=== PATIENT | female | born 1960 | race Caucasian/White ===

== ENCOUNTER 2019-03-19 22:02 | Emergency (ER) | payer BC ==
--- NOTE | 2019-03-19 22:23 | ED ---
Lower Extremity - HPI Summary HPI Summary: 58 yo female presents with RIGHT knee pain. She tells me that 2 days ago she returned from a flight from [place] and noticed some right posterior knee pain that is worse with weight bearing and better with rest. Since that time her pain has been persistent and today noticed a bruise to her anterior lower leg. She is concerned for a blood clot. She has a hx of knee arthritis and had a left knee replacement years ago. She does not smoke. Denies personal or family hx of blood clots. Denies SOB, chest pain, numbness, tingling. - History of Current Complaint Chief Complaint: EDExtremityLower Stated Complaint: RT LEG SWOLLEN AND PAIN PER PT Time Seen by Provider: 03/19/19 22:23 Hx Obtained From: Patient Severity Initially: Moderate Severity Currently: Moderate Pain Intensity: 6 Pain Scale Used: 0-10 Numeric - Allergies/Home Medications Allergies/Adverse Reactions: Allergies Allergy/AdvReac Type Severity Reaction Status Date / Time Penicillins Allergy Hives Verified 03/19/19 22:07 Home Medications: Home Medications Aspirin 1 tab PO DAILY 03/19/19 [History Confirmed 03/19/19] Atenolol [Tenormin 100 MG] 100 mg PO DAILY 03/19/19 [History Confirmed 03/19/19] Cholecalciferol TAB* [Vitamin D TAB*] 5,000 unit PO DAILY 03/19/19 [History Confirmed 03/19/19] Lisinopril TAB* [Prinivil TAB*] 10 mg PO DAILY 03/19/19 [History Confirmed 03/19] Multivitamin 1 tab 03/19/19 [History] Rosuvastatin Calcium [Crestor] 1 tab PO DAILY 03/19/19 [History Confirmed ] PMH/Surg Hx/FS Hx/Imm Hx Endocrine/Hematology History: Denies: Hx Diabetes Cardiovascular History: Reports: Hx Hypercholesterolemia, Hx Hypertension Respiratory History: Denies: Hx Asthma, Hx Chronic Obstructive Pulmonary Disease (COPD) History: Denies: Hx Acute Renal Failure Neurological History: Denies: Hx CVA, Hx Headaches, Hx Migraine - Surgical History Surgical History: Yes Surgery Procedure, Year, and Place: Left total knee replacement Infectious Disease History: Denies: Traveled Outside the [place] in Last 30 Days - Family History Known Family History: Positive: None - Social History Lives: With Family Alcohol Use: Occasionally Substance Use Type: Reports: None Smoking Status (MU): Never Smoked Tobacco Review of Systems Constitutional: Negative Cardiovascular: Negative Respiratory: Negative Gastrointestinal: Negative Musculoskeletal: Other - Right knee pain Skin: Negative Neurological: Negative Psychological: Normal All Other Systems Reviewed And Are Negative: No Physical Exam - Summary Physical Exam Summary: GENERAL: NAD. WDWN. No pain distress. SKIN: 4.0cm area of mild ecchymosis on lower anterior right leg. CHEST: No accessory muscle use. Breathing comfortably and in no distress. CV: Pulses intact popliteal, PT, and DP. Cap refill <2seconds MSK: Right KNEE: Mild TTP posterior knee. Pain reproduced with knee flexion. Strength 5/5. No edema or obvious bony deformities. Negative ruby sign. NEURO: Alert. Sensations intact and symmetric B/L LEs PSYCH: Age appropriate behavior. Triage Information Reviewed: Yes Vital Signs On Initial Exam: Initial Vitals Temp Pulse Resp BP Pulse Ox 97.8 F 89 16 143/58 99 03/19/19 22:05 03/19/19 22:05 03/19/19 22:05 03/19/19 22:05 03/19/19 22:05 Vital Signs Reviewed: Yes Procedures - Sedation Patient Received Moderate/Deep Sedation with Procedure: No Diagnostics - Vital Signs Vital Signs Temp Pulse Resp BP Pulse Ox 03/19/19 22:05 97.8 F 89 16 143/58 99 - Laboratory Lab Statement: Any lab studies that have been ordered have been reviewed, and results considered in the medical decision making process. - Radiology Right knee XR Radiology Interpretation Completed By: ED Physician Summary of Radiographic Findings: Moderate arthritis. No acute process - Ultrasound Right leg Ultrasound Interpretation Completed By: Radiologist Summary of Ultrasound Findings: IMPRESSION: No right lower extremity deep vein thrombosis. Lower Extremity Course/Dx - Course Course Of Treatment: US as above. XR wet read negative. Suspect arthritic pain. Advised to rest, ice, elevate, and take tylenol as directed for discomfort. F/u with her Orthopedic doctor back home in [place]. - Diagnoses Provider Diagnoses: Knee pain Discharge ED - Sign-Out/Discharge Documenting (check all that apply): Patient Departure - Discharge Plan Condition: Stable Disposition: HOME Patient Education Materials: Knee Pain (ED) Referrals: No Primary Care Phys,NOPCP [Primary Care Provider] - Additional Instructions: If you develop a fever, shortness of breath, chest pain, new or worsening symptoms - please call your PCP or go to the ED immediately. Your blood pressure was slightly elevated at todays visit. Please see your primary provider within 4 weeks for recheck and re-evaluation. Your ultrasound did not show a blood clot today - Billing Disposition and Condition Condition: STABLE Disposition: Home
[2019-03-20 00:32] VITALS: BP 153/76
== END 2019-03-20 00:32 | disposition home or self-care (01) ==
LOC: ED 22:02
DX: M25.561 Pain in right knee (principal); M25.461 Effusion, right knee; E78.00 Pure hypercholesterolemia, unspecified; I10 Essential (primary) hypertension; R60.9 Edema, unspecified
CPT/HCPCS: 99282